=== PATIENT | female | born 1955 | race Caucasian/White ===

== ENCOUNTER → 2019-07-18 09:59 | Outpatient (CLI) | payer BC, SELFPAY ==
--- NOTE | ~2019-07-18 | DEXA_ITS ---
Bone Density Report Name: Maddison Cardona Age: 64 Sex: Female Ethnicity: White Date of : 1955 Indication: postmenopausal; screening for osteoporosis; parental hip fracture; cancer; hysterectomy; Referring Provider: Mary Valdes Study: Bone densitometry was performed. Exam Date: July 18, 2019 Accession number: [id number] Bone Density: Region BMD T-score Z-score Classification AP Spine (L1-L4) 0.824 -2.0 -0.4 Osteopenia Femoral Neck (Left) 0.673 -1.6 -0.2 Osteopenia Total Hip (Left) 0.762 -1.5 -0.3 Osteopenia Femoral Neck (Right) 0.732 -1.1 0.4 Osteopenia Total Hip (Right) 0.804 -1.1 0.0 Osteopenia Total Hip Mean 0.783 -1.3 -0.2 Osteopenia World Health Organization criteria for BMD impression classify patients as: Normal (T-score at or above -1.0), Osteopenia (T-score between -1.0 and -2.5), or Osteoporosis (T-score at or below -2.5). 10-year Fracture Risk(1): Major Osteoporotic Fracture 15% Hip Fracture 0.8% Reported Risk Factors: [place] (), Neck BMD=0.673, BMI=20.0, parental fracture (1) FRAX(R) Version 3.08. Fracture probability calculated for an untreated patient. Fracture probability may be lower if the patient has received treatment. Clinical Information Provided by Patient: Parent has had a hip fracture Has used the following medications: Vitamin D, Calcium Has the following medical conditions: Cancer, Hysterectomy Patient maximum height was 63.0 Menopause Age: 30 Drinks caffeinated beverages Onset of menses at age 14 Number of children 0 Impression: The patient has low bone mass, based on the Total Spine T-score. The patient has an estimated ten-year risk of hip fracture of 0.8% and an estimated ten-year risk of major fracture of 15%, based on the WHO FRAX algorithm. The patient has risk factors, including: parental hip fracture. Discussion: BONE DENSITY IS LOW AT ONE OR MORE SKELETAL SITES. This patient's lowest T-score is low at one or more skeletal sites. It meets the World Health Organization's (WHO) criteria for ?low bone mass? (T-score between -1.0 and -2.5). The patient's 10-year risk of fracture as calculated by FRAX is less than the threshold where pharmacological therapy is recommended by the National Osteoporosis Foundation (NOF). However, all treatment decisions require clinical judgment and consideration of individual patient factors, including patient preferences, comorbidities, previous drug use, risk factors not captured in the FRAX model (e.g., frailty, falls, vitamin D deficiency, increased bone turnover, interval significant decline in bone density) and possible under or overestimation of fracture risk by FRAX. The patient should follow a healthful lifestyle (good nutrition with adequate calcium and vitamin D, and appropriate weight-bearing exercise).
== END ==
PROVIDERS: PCP Internal Medicine; Visit Provider Nurse Practitioner
DX: Z78.0 Asymptomatic menopausal state (principal); M85.89 Other specified disorders of bone density and structure, multiple sites
CPT/HCPCS: 77080

== ENCOUNTER → 2019-08-24 09:30 | Outpatient (CLI) | payer BC, SELFPAY ==
--- NOTE | ~2019-08-24 | XR_ITS ---
XR finger 2nd RT min 2V DATE: 08/24/2019 10:03 INDICATION: Right hand ganglia on TECHNIQUE: 4 views COMPARISON: None FINDINGS: No fracture or dislocation, periosteal reaction or bone destruction, joint space narrowing, erosive change or chondrocalcinosis or abnormal soft tissue calcification or subcutaneous emphysema. . IMPRESSION: Negative Reviewed, dictated and finalized at location B. [facility]OR LUMBER IMPRESSION: Negative
== END ==
PROVIDERS: PCP Internal Medicine; Visit Provider Nurse Practitioner
DX: M67.441 Ganglion, right hand (principal)
CPT/HCPCS: 73140

== ENCOUNTER 2021-09-09 09:55 | Outpatient (CLI) | payer MEDICARE, SELFPAY ==
--- NOTE | ~2021-09-09 | DEXA_ITS ---
Bone Density Report Name: HAYLEY MAYS Age: 66 Sex: Female Ethnicity: White Date of : 1955 Indication: postmenopausal; parental hip fracture; hysterectomy; Referring Provider: Mary Valdes Study: Bone densitometry was performed. Exam Date: September 09, 2021 Accession number: [id number] Bone Density: Region BMD T-score Z-score Classification AP Spine (L1-L4) 0.807 -2.2 -0.4 Osteopenia Femoral Neck (Left) 0.661 -1.7 -0.2 Osteopenia Total Hip (Left) 0.750 -1.6 -0.3 Osteopenia Total Hip Bilateral Avg 0.785 -1.3 -0.1 Osteopenia Femoral Neck (Right) 0.745 -0.9 0.6 Normal Total Hip (Right) 0.819 -1.0 0.2 Normal World Health Organization criteria for BMD impression classify patients as: Normal (T-score at or above -1.0), Osteopenia (T-score between -1.0 and -2.5), or Osteoporosis (T-score at or below -2.5). 10-year Fracture Risk(1): Major Osteoporotic Fracture 15% Hip Fracture 1.1% Reported Risk Factors: [place] (), Neck BMD=0.661, BMI=19.7, parental fracture (1) FRAX(R) Version 3.08. Fracture probability calculated for an untreated patient. Fracture probability may be lower if the patient has received treatment. Previous Exams: Region Exam Age BMD T-score BMD Change BMD Change Date g/cm2 vs Baseline vs Previous AP Spine(L1-L4) 09/09/2021 66 0.807 -2.2 -0.195(-19.5%) -0.195(-19.5%) 05/25/2008 53 1.003 -0.4 Total Hip(Left) 09/09/2021 66 0.750 -1.6 -0.095(-11.2%) -0.095(-11.2%) 05/25/2008 53 0.845 -0.8 Total Hip(Right) 09/09/2021 66 0.819 -1.0 -0.068(-7.7%)# -0.068(-7.7%)# 05/25/2008 53 0.887 -0.5 *Denotes significance at 95% confidence level, LSC for AP Spine = 0.022 g/cm2, LSC for Total Hip = 0.027 g/cm2 Clinical Information Provided by Patient: Parent has had a hip fracture Has used the following medications: Vitamin D, Calcium Has the following medical conditions: Hysterectomy Patient maximum height was 63 Menopause Age: 30 Drinks caffeinated beverages Onset of menses at age 14 Number of children 0 Impression: The patient has low bone mass, based on the Total Spine T-score. The patient has an estimated ten-year risk of hip fracture of 1.1% and an estimated ten-year risk of major fracture of 15%, based on the WHO FRAX algorithm. The patient has risk factors, including: parental hip fracture. No significant bone loss was observed. Discussion: BONE DENSITY IS LOW AT ONE OR MORE SKELETAL SITES. This patien
== END 2021-09-09 09:56 | disposition home or self-care (01) ==
LOC: ANHIMG 10:04
PROVIDERS: PCP Internal Medicine; Visit Provider Nurse Practitioner
DX: Z78.0 Asymptomatic menopausal state (principal); M85.88 Other specified disorders of bone density and structure, other site; M85.852 Other specified disorders of bone density and structure, left thigh
CPT/HCPCS: 77080

== ENCOUNTER → 2021-10-06 10:18 | Outpatient (CLI) | payer MEDICARE, SELFPAY ==
--- NOTE | ~2021-10-06 | XR_ITS ---
EXAMINATION: XR thoracic spine 2V EXAM DATE: 10/06/2021 10:52 INDICATION: M54.9 - Dorsalgia, unspecified . TECHNIQUE: Frontal and lateral projections of the thoracic spine as well as lateral swimmers projecti on of the upper thoracic spine for interpretation. There is no prior study for comparison. FINDINGS: There is mild mid thoracic dextroscoliosis, lower thoracic levoscoliosis. Minimal Limited lower thoracic disc disease. The vertebral body and disc heights are otherwise well maintained. The v ertebral bodies are aligned in the AP dimension. Paraspinal soft tissue is unremarkable. IMPRESSION: 1. Mild thoracolumbar scoliosis. 2. Minimal disc disease. Reviewed, dictated and finalized at location A.
--- NOTE | ~2021-10-06 | XR_ITS ---
EXAMINATION: XR lumbar spine 2-3V EXAM DATE: 10/06/2021 10:52 INDICATION: M54.9 - Dorsalgia, unspecified TECHNIQUE: Lumber spine frontal, lateral, lateral L5-S1 projections for interpretation. Comparison is made to prior examination from 09/03/2017. FINDINGS: There is mild lumbar dextroscoliosis. Mild to moderate L4-5 and moderate L5-S1 disc disease . There is mild to moderate lumbar facet arthropathy. Sacrum, sacroiliac joints, sacral arcuate lines are intact. Pelvic lymph node dissection clips. There is 4 mm anterolisthesis L4 on L5. No spondylol ysis suspected. The vertebral bodies are otherwise aligned. Mild progression spondylosis and scoliosi s compared to 2018. IMPRESSION: 1. Mild to moderate lumbar spondylosis. 2. Mild dextroscoliosis. Reviewed, dictated and finalized at location A.
== END ==
PROVIDERS: PCP Internal Medicine; Visit Provider Nurse Practitioner
DX: M54.9 Dorsalgia, unspecified (principal); M41.85 Other forms of scoliosis, thoracolumbar region; M51.9 Unspecified thoracic, thoracolumbar and lumbosacral intervertebral disc disorder; M47.816 Spondylosis without myelopathy or radiculopathy, lumbar region
CPT/HCPCS: 72070; 72100

== ENCOUNTER → 2021-10-17 15:36 | Outpatient (CLI) | payer MEDICARE, SELFPAY ==
--- NOTE | ~2021-10-17 | US_ITS ---
EXAMINATION: US renal BI DATE: 10/17/2021 15:53 INDICATION: Bilateral flank pain. Abdominal pain. TECHNIQUE: Multiple ultrasound grayscale images of the kidneys were obtained. COMPARISON: None. FINDINGS: The right kidney measures 8.8 x 4.0 x 3.8 cm. The left kidney measures 9.7 x 4.2 x 4.1 cm. The kidney s demonstrate normal echogenicity. There is no hydronephrosis in either kidney. No stones identified . The bladder is normal. IMPRESSION: 1. Normal kidneys without hydronephrosis. Reviewed, dictated and finalized at location A.
--- NOTE | ~2021-10-17 | MR_ITS ---
EXAMINATION: MR lumbar spine wo con DATE: 10/17/2021 16:52 INDICATION: Dorsalgia, unspecified. TECHNIQUE: Magnetic resonance imaging (MRI) of the lumbar spine was performed without intravenous con trast. Sequences included sagittal T2-weighted FSE, sagittal T2-weighted FS FSE, sagittal T1-weighted FSE, and axial T2-weighted FSE. COMPARISON: Lumbar spine MRI 03/12/2016 FINDINGS: There is 6 degrees dextrocurvature of lumbar spine. There is 4 mm anterolisthesis of L4 on L5 and 3 mm retrolisthesis of L5 on S1. There is a compression fracture of inferior endplate of L5 wi th less than 1/5 loss of height, low signal fracture line, and bone marrow edema. There is mildly dec reased disc height at L1-L2 and L3-L4, moderately decreased disc at L4-L5, and severely decreased dis c height at L5-S1. The distal spinal cord signal intensity is normal. The conus medullaris is at L1. The following disc levels are specifically discussed: L1-L2: The disc is bulging. There is mild bilateral facet joint osteoarthritis. There is no neural fo raminal stenosis. There is mild central canal stenosis. L2-L3: The disc is mildly bulging. There is mild right facet joint osteoarthritis. There is mild bila teral neural foraminal stenosis. There is no central canal stenosis. L3-L4: The disc is bulging. There is mild right and moderate left facet joint osteoarthritis. There i s mild bilateral neural foraminal stenosis. There is mild central canal stenosis. L4-L5: The disc is bulging and has an annular fissure. There is severe bilateral facet joint osteoart hritis. There is mild bilateral neural foraminal stenosis. There is mild central canal stenosis. L5-S1: The disc is bulging and has an annular fissure. There is mild bilateral facet joint osteoarthr itis. There is moderate bilateral neural foraminal stenosis. There is mild central canal stenosis. IMPRESSION: 1. L5 compression fracture, likely subacute. 2. Severe lumbar spondylosis, worsened from 03/12/2016. Reviewed, dictated and finalized at location B.
== END ==
PROVIDERS: PCP Internal Medicine; Visit Provider Nurse Practitioner
DX: R10.9 Unspecified abdominal pain (principal); M48.56XA Collapsed vertebra, not elsewhere classified, lumbar region, initial encounter for fracture; M47.817 Spondylosis without myelopathy or radiculopathy, lumbosacral region; M48.07 Spinal stenosis, lumbosacral region
CPT/HCPCS: 72148; 76775